=== PATIENT | female | born 1985 | race Caucasian/White ===

== ENCOUNTER → 2024-02-05 | Outpatient (CLI) | payer OTHER ==
[2024-02-05 15:48] LABS: ALBUMIN 3.9 G/DL (3.2-5.2); ALKALINE PHOSPHATASE 57 U/L (46-116); ALT/SGPT 36 U/L (7.0-40); AST/SGOT 29 U/L (<34); BILIRUBIN,TOTAL 0.3 MG/DL (0.3-1.2); BLOOD UREA NITROGEN 12 MG/DL (9-23); CALCIUM LEVEL 9.4 MG/DL (8.5-10.1); CARBON DIOXIDE LEVEL 26 MMOL/L (20-31); CHLORIDE LEVEL 107 MMOL/L (98-107); CREATININE FOR GFR 0.84 MG/DL (0.55-1.30); GLOMERULAR FILTRATION RATE > 60.0 (>60); GLUCOSE, FASTING 111 MG/DL (60-100); POTASSIUM SERUM 4.4 MMOL/L (3.5-5.1); SODIUM LEVEL 139 MMOL/L (136-145); TOTAL PROTEIN 7.3 G/DL (5.7-8.2)
[2024-02-05 15:50] LABS: IMMUNOGLOBULIN A 130.7 MG/DL (40-350); IMMUNOGLOBULIN G 832 MG/DL (650-1600)
[2024-02-05 15:51] LABS: BASO # 0.1 10^3/uL (0.0-0.2); BASO % 0.6 % (0.0-1.0); EOS # 0.2 10^3/uL (0.0-0.5); EOS % 2.1 % (0.0-3.0); HEMATOCRIT 39.3 % (36.0-47.0); HEMOGLOBIN 12.1 g/dl (12.0-15.5); LYMPH # 1.9 10^3/uL (1.5-5.0); LYMPH % 22.3 % (24.0-44.0); MEAN CORPUSCULAR HEMOGLOBIN 24.6 pg (27.0-33.0); MEAN CORPUSCULAR HGB CONC 30.8 g/dl (32.0-36.5); MEAN CORPUSCULAR VOLUME 79.9 fl (80.0-96.0); MONO # 0.7 10^3/uL (0.0-0.8); MONO % 8.3 % (2.0-8.0); NEUTROPHILS # 5.7 10^3/uL (1.5-8.5); PLATELET COUNT, AUTOMATED 221 10^3/uL (150-450); RED BLOOD COUNT 4.92 10^6/uL (4.00-5.40); WHITE BLOOD COUNT 8.6 10^3/uL (4.0-10.0)
[2024-02-05 15:53] LABS: THYROID STIMULATING HORMONE 7.351 uIU/ML (0.55-4.78)
[2024-02-05 15:54] LABS: FREE T4 1.18 NG/DL (0.89-1.76)
[2024-02-05 16:13] LABS: ERYTHROCYTE SEDIMENTATION RATE 46 mm/hr (0-20); HEMOGLOBIN A1c 5.8 % (4.0-6.0)
[2024-02-06 11:00] LABS: CORTISOL AM 15.7 UG/DL (4.3-22.4)
[2024-02-10 08:49] LABS: HEPATITIS B SURFACE ANTIGEN NEGATIVE (NEGATIVE)
[2024-02-10 09:02] LABS: HIV 1&2 SCREEN NEGATIVE (NEGATIVE)
[2024-02-10 09:10] LABS: HEPATITIS C VIRUS ABY INDEX < 0.02 INDEX (<0.8)
== END ==
LOC: M PLALAB 12:58
PROVIDERS: ATTEND Internal Medicine Infectious Disease
DX: Z11.59 Encounter for screening for other viral diseases (principal); B37.31 Acute candidiasis of vulva and vagina; E74.39 Other disorders of intestinal carbohydrate absorption; R63.5 Abnormal weight gain

== ENCOUNTER 2024-04-04 08:42 | Outpatient (CLI) | payer OTHER ==
[~2024-04-04] VITALS: Ht 154.9 cm; Wt 113.6 kg
[2024-04-04 08:55] VITALS: BP 168/81; O2SAT 99
[2024-04-04] MEDS: D5W IV ONE (09:37)
[2024-04-04] MEDS: [UNRECOGNIZED DRUG - OTHER] IV ONE (09:37)
[2024-04-04 10:40] VITALS: BP 149/76; O2SAT 100
== END 2024-04-04 10:55 ==
LOC: M INFU 08:42
PROVIDERS: ATTEND Internal Medicine Infectious Disease
DX: B37.89 Other sites of candidiasis (principal); Z88.1 Allergy status to other antibiotic agents; Z88.8 Allergy status to other drugs, medicaments and biological substances
CPT/HCPCS: 96365; J0349

== ENCOUNTER 2024-05-20 09:15 | Outpatient (CLI) | payer OTHER ==
[~2024-05-20] VITALS: Ht 154.9 cm; Wt 114.5 kg
[~2024-05-20 09:15] MED LIST: D5W IV ONE; [UNRECOGNIZED DRUG - OTHER] IV ONE
[2024-05-20 09:51] VITALS: BP 176/94; O2SAT 97
[2024-05-20] MEDS: [UNRECOGNIZED DRUG - OTHER] IV ONE (10:36)
[2024-05-20] MEDS: D5W IV ONE (10:36)
== END 2024-05-20 11:45 ==
LOC: M INFU 09:15
PROVIDERS: ATTEND Internal Medicine Infectious Disease
DX: B37.9 Candidiasis, unspecified (principal); Z88.1 Allergy status to other antibiotic agents; Z88.8 Allergy status to other drugs, medicaments and biological substances
CPT/HCPCS: 96365; J0349